=== PATIENT | female | born 1960 | race Caucasian/White ===

== ENCOUNTER → 2018-02-01 | Outpatient (CLI) | payer OTHER | LOC: CIMAGING 14:57 | PROVIDERS: ATTEND Family Medicine | DX: R07.81 Pleurodynia (principal); R10.811 Right upper quadrant abdominal tenderness | CPT/HCPCS: 71101-PO ==

== ENCOUNTER → 2018-10-14 | Outpatient (CLI) | payer OTHER | LOC: CIMAGING 11:05 | PROVIDERS: ATTEND Family Medicine | DX: Z12.31 Encounter for screening mammogram for malignant neoplasm of breast (principal) ==

== ENCOUNTER → 2018-11-21 | Outpatient (CLI) | payer OTHER | LOC: CIMAGING 12:11 | PROVIDERS: ATTEND Internal Medicine | DX: M25.561 Pain in right knee (principal) | CPT/HCPCS: 73562-PO ==